=== PATIENT | male | born 1975 | race Caucasian/White ===

== ENCOUNTER 2025-05-16 18:14 | Inpatient (IN) | payer OTHER ==
[2025-05-16] MEDS ORDERED: LORazepam 1 MG/0.5 ML VIAL IV PRN ×3 (18:36)
[2025-05-16] MEDS ORDERED: LORazepam 0.5 MG TAB PO PRN (18:36)
[2025-05-16] MEDS ORDERED: LORazepam 1 MG TAB PO PRN ×2 (18:36)
--- NOTE | 2025-05-16 18:39 | ED ---
Seizure HPI - General Chief Complaint: Seizure Stated Complaint: ETOH Time Seen by Provider: 05/16/25 18:16 Source: patient, EMS, RN notes reviewed, old records reviewed Mode of arrival: EMS Limitations: no limitations - History of Present Illness Initial Comments: This is a 49-year-old male to ER from [place], patient is there on day 3 of alcohol abuse. Patient had a seizure today no prior history of alcohol withdrawal related seizures no prior history of seizures General MD Complaint: seizure -: minutes(s) Description of Episode: loss of consciousness, tonic-clonic movement Witnessed: yes - by bystander Trauma: Yes Seizure History: history of withdrawal seizures Possible Precipitating Event: alcohol withdrawal Associated Symptoms: denies other symptoms - Related Data Home Medications Medication Instructions Recorded Confirmed Acetaminophen Tab [Tylenol] 650 mg PO Q4H PRN 05/16/25 05/16/25 Calcium Phos/D3/Magnesium/Zinc 1 tab PO TID PRN 05/16/25 05/16/25 [Ebsmpeq-Uks-Zpvk-Vitamin D3] Chlorpheniramine Maleate 4 mg PO Q4H PRN 05/16/25 05/16/25 [Chlor-Trimeton] Ibuprofen [Motrin Ib] 600 mg PO Q6H PRN 05/16/25 05/16/25 Loperamide HCl [Imodium A-D] 2 mg PO QID PRN 05/16/25 05/16/25 Multivitamins, Thera [Multivitamin 1 tab PO DAILY 05/16/25 05/16/25 (formulary)] Thiamine [Vitamin B-1] 100 mg PO DAILY 05/16/25 05/16/25 ondansetron HCL [Zofran] 8 mg PO Q6H PRN 05/16/25 05/16/25 Previous Rx's Medication Instructions Recorded Folic Acid 1 mg PO DAILY 90 Days #90 tab 05/19/25 Multivitamins, Thera [Multivitamin 1 each PO DAILY 90 Days #90 tab 05/19/25 (formulary)] Nicotine 21Mg/24Hr Patch [Habitrol] 1 patch TRANSDERM DAILY 30 Days 05/19/25 #30 patch Allergies Allergy/AdvReac Type Severity Reaction Status Date / Time No Known Allergies Allergy Verified 05/16/25 19:18 Review of Systems ROS Statement: Those systems with pertinent positive or pertinent negative responses have been documented in the HPI. ROS Other: All systems not noted in ROS Statement are negative. Past Medical History Past Medical History: No Reported History History of Any Multi-Drug Resistant Organisms: None Reported Past Surgical History: No Surgical Hx Reported Past Psychological History: Anxiety Smoking Status: Current every day smoker Past Alcohol Use History: Heavy Past Drug Use History: Marijuana General Exam Limitations: no limitations General appearance: alert, in no apparent distress Head exam: Present: atraumatic, normocephalic, normal inspection Eye exam: Present: normal appearance, PERRL, EOMI. Absent: scleral icterus, conjunctival injection, periorbital swelling ENT exam: Present: normal exam, mucous membranes moist Neck exam: Present: normal inspection. Absent: tenderness, meningismus, lymphadenopathy Respiratory exam: Present: normal lung sounds bilaterally. Absent: respiratory distress, wheezes, rales, rhonchi, stridor Cardiovascular Exam: Present: regular rate, normal rhythm, normal heart sounds. Absent: systolic murmur, diastolic murmur, rubs, gallop, clicks GI/Abdominal exam: Present: soft, normal bowel sounds. Absent: distended, tenderness, guarding, rebound, rigid Extremities exam: Present: normal inspection, full ROM, normal capillary refill. Absent: tenderness, pedal edema, joint swelling, calf tenderness Back exam: Present: normal inspection Neurological exam: Present: alert, oriented X3, CN II-XII intact Psychiatric exam: Present: normal affect, normal mood Skin exam: Present: warm, dry, intact, normal color. Absent: rash Course Vital Signs 05/16/25 05/16/25 05/16/25 18:16 18:50 20:18 Temperature 98.2 F Pulse Rate 69 74 86 Respiratory 18 18 16 Rate Blood Pressure 102/73 110/72 111/74 O2 Sat by Pulse 97 98 98 Oximetry 05/16/25 21:54 Temperature 98.1 F Pulse Rate 85 Respiratory 16 Rate Blood Pressure 119/79 O2 Sat by Pulse 100 Oximetry - Reevaluation(s) Reevaluation #1: 05/16/25 18:57 Medical records reviewed Reevaluation #2: 05/16/25 18:57 Patient's symptoms are mildly improving Reevaluation #3: 05/16/25 19:47 No recurrent seizure here in the ER Reevaluation #4: Was pt. sent in by a medical professional or institution (BERTHA Bowers, FLIGHT READINESS TECHNICIAN, urgent care, hospital, or fpc...) When possible be specific @ -no Did you speak to anyone other than the patient for history (EMS, parent, family, police, friend...)? What history was obtained from this source @ -no Did you review nursing and triage notes (agree or disagree)? Why? @ -agree Are old charts reviewed (outside hosp., previous admission, EMS record, old EKG, old radiological studies, urgent care reports/EKG's, fpc records)? Report findings @ -yes Differential Diagnosis (chest pain, altered mental status, abdominal pain women, abdominal pain men, vaginal bleeding, weakness, fever, dyspnea, syncope, headache, dizziness, GI bleed, back pain, seizure, CVA, palpatations, mental health, musculoskeletal)? @ -prior EKG interpreted by me (3pts min.). @ -no X-rays interpreted by me (1pt min.). @ -no CT interpreted by me (1pt min.). @ -no U/S interpreted by me (1pt. min.). @ -no What testing was considered but not performed or refused? (CT, X-rays, U/S, labs)? Why? @ -none What meds were considered but not given or refused? Why? @ -none Did you discuss the management of the patient with other professionals (professionals i.e. BERTHA Bowers, FLIGHT READINESS TECHNICIAN, lab, RT, psych nurse, web content & social media manager, ethics instructor, teacher, humane officer, lead case manager)? Give summary @ -no Was smoking cessation discussed for >3mins.? @ -no Was critical care preformed (if so, how long)? @ -no Were there social determinants of health that impacted care today? How? (Homelessness, low income, unemployed, alcoholism, drug addiction, transportation, low edu. Level, literacy, decrease access to med. care, usp, rehab)? @ -none Was there de-escalation of care discussed even if they declined (Discuss DNR or withdrawal of care, Hospice)? DNR status @ -no What co-morbidities impacted this encounter? (DM, HTN, Smoking, COPD, CAD, Cancer, CVA, ARF, Chemo, Hep., AIDS, mental health diagnosis, sleep apnea, morbid obesity)? @ -none Was patient admitted / discharged? Hospital course, mention meds given and route, prescriptions, significant lab abnormalities, going to OR and other pertinent info. @ - 49 male will be admitted for alcohol withdrawal seizures no recurrent seizure here in the ER Discharge Undiagnosed new problem with uncertain prognosis? @ -no Drug Therapy requiring intensive monitoring for toxicity (Heparin, Nitro, Insulin, Cardizem)? @ -no Were any procedures done? @ -no Diagnosis/symptom? @ -Alcohol withdrawal seizure Acute, or Chronic, or Acute on Chronic? @ -Acute Uncomplicated (without systemic symptoms) or Complicated (systemic symptoms)? @ -Complicated Side effects of treatment? @ -no Exacerbation, Progression, or Severe Exacerbation? @ -exacerbation Poses a threat to life or bodily function? How? (Chest pain, USA, PA, pneumonia, PE, COPD, DKA, ARF, appy, cholecystitis, CVA, Diverticulitis, Homicidal, Suicidal, threat to staff... and all critical care pts) @ -yes significant withdrawal Reevaluation #5: Differential Seizure: Recurrent seizure disorder, febrile seizure, alcohol withdrawal, stimulants, meningitis, encephalitis, intercranial hemorrhage, intracranial tumor, stroke, eclampsia, thyrotoxicosis, hypocalcemia, hyponatremia, hypernatremia, hypomagnesemia, psychogenic, this is not meant to be an all-inclusive list. - Consultations Consultation #1: Spoke with Dr. Lao who will admit this patient Medical Decision Making - Medical Decision Making 49 male will be admitted for alcohol withdrawal seizures no recurrent seizure here in the ER - Lab Data Result diagrams: 05/18/25 02:54 05/18/25 02:54 Disposition Clinical Impression: New onset seizure, Alcohol withdrawal seizure, Alcohol withdrawal Disposition: ADMITTED IP TO THIS HOSP Condition: Serious Is patient prescribed a controlled substance at d/c from ED?: No Time of Disposition: 19:00
[2025-05-16] MEDS: SODIUM CHLORIDE 0.9% 1,000 ML IV STA (18:55)
[2025-05-16 19:07] LABS: Basophils # (A) 0.03 10*3/uL (0.00-0.10); Basophils % (A) 0.6 %; Eosinophils # (A) 0.07 10*3/uL (0.04-0.35); Eosinophils % (A) 1.3 %; HCT 41.9 % (39.6-50.0); HGB 14.7 g/dL (13.0-17.0); Immature Platelet Fraction 5.3 % (1.1-6.1); Lymphocytes # (A) 1.07 10*3/uL (0.90-5.00); Lymphocytes % (A) 20.3 %; MCH 32.2 pg (27.0-32.0); MCHC 35.1 g/dL (32.0-37.0); MCV 91.9 fL (80.0-97.0); Monocytes # (A) 0.36 10*3/uL (0.20-1.00); Monocytes % (A) 6.8 %; Neutrophils # (A) 3.74 10*3/uL (1.80-7.70); Neutrophils % (A) 70.8 %; Platelet Count 117 10*3/uL (140-440); RBC 4.56 10*6/uL (4.40-5.60); RDW 13.4 % (11.5-14.5); WBC 5.28 10*3/uL (4.50-10.00)
[2025-05-16 19:19] LABS: ALT 87 U/L (4-49); AST 105 U/L (17-59); African American GFR (CKD) >90 (>60 ml/min/1.73 sqM); Albumin 4.0 g/dL (3.5-5.0); Alkaline Phosphatase 100 U/L (38-126); Anion Gap 7 mmol/L; Blood Urea Nitrogen 6 mg/dL (9-20); Calcium 9.7 mg/dL (8.4-10.2); Carbon Dioxide 33 mmol/L (22-30); Chloride 95 mmol/L (98-107); Glucose 130 mg/dL (74-99); Lipase 169 U/L (23-300); Magnesium 2.3 mg/dL (1.6-2.3); Non-African American GFR(CKD) >90 (>60 ml/min/1.73 sqM); Potassium 3.8 mmol/L (3.5-5.1); Sodium 135 mmol/L (137-145); Total Protein 7.1 g/dL (6.3-8.2)
[2025-05-16] MEDS ORDERED: NALOXONE 0.4 MG/ML 1 ML VIAL IV PRN (19:51)
[2025-05-16] MEDS ORDERED: ONDANSETRON 4 MG/2 ML VIAL IVP PRN (19:51)
[2025-05-16] MEDS: DEXTROSE 5%-0.45% NACL 1,000 ML IV SCH (20:19)
[2025-05-16] MEDS: LORazepam 1 MG/0.5 ML VIAL IV STA (20:21)
[2025-05-16 20:57] LABS: Bilirubin,Urine Negative (Negative); Blood,Urine Negative (Negative); Color,Urine Colorless; Glucose,Urine (UA) Negative (Negative); Ketones,Urine Negative (Negative); Leukocyte Esterase,Urine Negative (Negative); Nitrite,Urine Negative (Negative); PH, Urine 7.0 (5.0-8.0); Protein,Urine Negative (Negative); Specific Gravity,Urine 1.003 (1.001-1.035); Urobilinogen,Urine <2.0 mg/dL (<2.0)
[2025-05-16] MEDS: PANTOPRAZOLE 40 MG/10 ML VIAL IV SCH (21:16)
[2025-05-16 21:47] LABS: Barbiturate Screen,Urine Not Detected (NotDetected); Benzodiazepines Screen,Urine Not Detected (NotDetected); Opiate Screen,Urine Not Detected (NotDetected); Oxycodone Screen, Urine Not Detected (NotDetected); Phencyclidine Screen,Urine Not Detected (NotDetected); Tricyclic Antidepressant,Urine Not Detected (NotDetected); Urn Cannabinoid Scrn Detected (NotDetected)
[2025-05-16] MEDS: NICOTINE 21MG/24HR PATCH TRANSDERM SCH (23:08)
[2025-05-17] MEDS: MULTIVITAMINS, THERA 1 EACH TAB PO SCH (08:44)
[2025-05-17] MEDS: THIAMINE 100 MG TAB PO SCH (08:44)
[2025-05-17] MEDS: FOLIC ACID 1 MG TAB PO SCH (08:45)
[2025-05-17] MEDS: LORazepam 1 MG TAB PO PRN (08:54)
[2025-05-17 09:06] LABS: ALT 85 U/L (10-49); AST 93 U/L (14-35); Albumin 3.8 g/dL (3.8-4.9); Albumin/Globulin Ratio 1.52 Ratio (1.60-3.17); Alkaline Phosphatase 93 U/L (41-126); Anion Gap 9.20 mmol/L (4.00-12.00); BUN/Creat Ratio 6.38 Ratio (12.00-20.00); Blood Urea Nitrogen 5.1 mg/dL (9.0-27.0); Calcium 8.7 mg/dL (8.7-10.3); Carbon Dioxide 27.8 mmol/L (21.6-31.8); Chloride 105 mmol/L (96-109); Globulin 2.5 g/dL (1.6-3.3); Glucose 89 mg/dL (70-110); Magnesium 2.1 mg/dL (1.5-2.4); Potassium 4.3 mmol/L (3.5-5.5); Sodium 142 mmol/L (135-145); Total Protein 6.3 g/dL (6.2-8.2)
[2025-05-17 09:15] LABS: Basophils # (A) 0.05 X 10*3/uL (0.00-0.10); Basophils % (A) 0.9 %; Eosinophils # (A) 0.10 X 10*3/uL (0.04-0.35); Eosinophils % (A) 1.9 %; HCT 43.5 % (39.6-50.0); HGB 14.4 g/dL (13.0-17.0); Immature Grans, Automated 0.20 %; Lymphocytes # (A) 2.01 X 10*3/uL (0.90-5.00); Lymphocytes % (A) 37.2 %; MCH 31.4 pg (27.0-32.0); MCHC 33.1 g/dL (32.0-37.0); MCV 94.8 FL (80.0-97.0); Monocytes # (A) 0.60 X 10*3/uL (0.20-1.00); Monocytes % (A) 11.1 %; NRBC Per 100 WBC 0 X 10*3/uL (0.00-0.01); Neutrophils # (A) 2.63 X 10*3/uL (1.80-7.70); Neutrophils % (A) 48.7 %; Platelet Count 121 X 10*3/uL (140-440); RBC 4.59 X 10*6/uL (4.40-5.60); RDW 13.9 % (11.5-14.5); WBC 5.40 X 10*3/uL (4.50-10.00)
[2025-05-18 07:47] LABS: Basophils # (A) 0.04 X 10*3/uL (0.00-0.10); Basophils % (A) 0.7 %; Eosinophils # (A) 0.17 X 10*3/uL (0.04-0.35); Eosinophils % (A) 2.8 %; HCT 43.7 % (39.6-50.0); HGB 14.0 g/dL (13.0-17.0); Immature Grans, Automated 0.20 %; Lymphocytes # (A) 2.27 X 10*3/uL (0.90-5.00); Lymphocytes % (A) 37.5 %; MCH 31.0 pg (27.0-32.0); MCHC 32.0 g/dL (32.0-37.0); MCV 96.7 FL (80.0-97.0); Monocytes # (A) 0.65 X 10*3/uL (0.20-1.00); Monocytes % (A) 10.7 %; NRBC Per 100 WBC 0 X 10*3/uL (0.00-0.01); Neutrophils # (A) 2.91 X 10*3/uL (1.80-7.70); Neutrophils % (A) 48.1 %; Platelet Count 111 X 10*3/uL (140-440); RBC 4.52 X 10*6/uL (4.40-5.60); RDW 13.7 % (11.5-14.5); WBC 6.05 X 10*3/uL (4.50-10.00)
[2025-05-18 08:03] LABS: Anion Gap 10.10 mmol/L (4.00-12.00); BUN/Creat Ratio 9.57 Ratio (12.00-20.00); Blood Urea Nitrogen 6.7 mg/dL (9.0-27.0); Carbon Dioxide 28.9 mmol/L (21.6-31.8); Chloride 104 mmol/L (96-109); Glucose 84 mg/dL (70-110); Potassium 4.1 mmol/L (3.5-5.5); Sodium 143 mmol/L (135-145)
[2025-05-18 08:04] LABS: ALT 85 U/L (10-49); AST 88 U/L (14-35); Albumin 3.8 g/dL (3.8-4.9); Albumin/Globulin Ratio 1.52 Ratio (1.60-3.17); Alkaline Phosphatase 89 U/L (41-126); Calcium 8.8 mg/dL (8.7-10.3); Globulin 2.5 g/dL (1.6-3.3); Total Protein 6.3 g/dL (6.2-8.2)
[2025-05-18 17:52] VITALS: BMI 16.7
--- NOTE | 2025-05-19 00:39 | HP ---
HISTORY AND PHYSICAL HISTORY OF PRESENT ILLNESS: A white male came in for alcohol abuse from [facility] no prior history of withdrawal seizures. No history of seizure history. First time seizure. No alcohol withdrawal or withdrawal seizures. HOME MEDICATIONS: 1. Tylenol. 2. Magnesium. 3. Triamterene. 4. Motrin 600 q.8 p.r.n. 5. Vitamin B1 100 mg daily. 6. Zofran 8 mg q.6 p.r.n. 7. Loperamide 2 tabs q.i.d.. REVIEW OF SYSTEMS: A 14-point review of systems otherwise is negative. PAST MEDICAL HISTORY: Anxiety, everyday smoker, COPD, pulmonary hypertension, nocturnal hypoxemia. PHYSICAL EXAMINATION: VITAL SIGNS: Stable, afebrile. CARDIOVASCULAR: S1, S2. LUNGS: Scattered wheeze and rhonchi. GI: Soft, minimal tenderness to palpation, diffuse. NEUROLOGIC: Cranial nerves intact. PSYCH: Fair mood and affect. PLAN: Continue current treatment. To rehydrate as patient appears to be dehydrated. Blood pressure is 102-110/70s, O2 97% to 88% on room air, temperature 98.2, respiratory rate 16-18. Alcohol withdrawal, alcohol sedation, differential seizure secondary to . Prognosis is guarded. Ambulate as tolerated. New onset seizure. We will have to see if it is related to alcohol. EEG pending. MMODL / IJN: [id number] /
--- NOTE | 2025-05-19 01:00 | PN ---
PROGRESS NOTE SUBJECTIVE: Alcohol withdrawal, seizures, COPD, breathing, smoked for many years. He is on nicotine patch, Zofran and Protonix for GERD, Ativan or alcohol withdrawal. Prognosis guarded. OBJECTIVE: CARDIOVASCULAR: S1, S2. LUNGS: Transmitted upper airway sounds. GI: Soft, nontender. HEMATOLOGY: Negative Homans. PSYCH: Fair mood and affect. PLAN: Continue current treatments. Start albuterol inhaler, to go home on Symbicort. Continue home medications. Prognosis is guarded. Ambulate as tolerated. Nicotine cessation. MMODL / IJN: [id number] /
--- NOTE | 2025-05-19 14:28 | CT ---
EXAMINATION TYPE: CT brain wo con CT DLP: 1141.1 mGycm, Automated exposure control for dose reduction was used. DATE OF EXAM: 05/19/2025 2:20 PM COMPARISON: None. CLINICAL INDICATION:Male, 49 years old with history of seizure, seizure TECHNIQUE: Brain: Multiple axial CT images of the brain were obtained without IV contrast. . Coronal and sagitta l reformats reviewed. FINDINGS: Brain: Extra-axial spaces: No abnormal extra-axial fluid collections. Ventricular system: Within normal limits Cerebral parenchyma: No acute intraparenchymal hemorrhage or mass effect. The downing-white junction is well differentiated. Cerebellum: Unremarkable. Mass effect: No evidence of midline shift. Intracranial vasculature: unremarkable Soft tissues: Normal. Calvarium/osseous structures: No depressed skull fracture. Paranasal sinuses and mastoid air cells: The mastoid air cells are clear. Minimal mucosal thickening in the inferior right maxillary sinus. The remaining paranasal sinuses are clear. Visualized orbits: Orbital contents are intact. IMPRESSION: No acute intracranial process. [facility], , 05/19/2025 2:26 PM
--- NOTE | 2025-05-19 15:34 | P.CNNES ---
History of Present Illness Consult date: 05/19/25 Requesting physician: Anibal Lao Reason for Consult: seizure, family request History of Present Illness: Patient is a 49-year-old right-handed male, with history of alcoholism, came to the hospital as a transfer from [facility], by ambulance on 05/16/2025 at 6:14 PM for possible seizure-like activity. Patient states that he was at [facility] for only 2 days before he had a seizure. Patient states on day 1, he was feeling sick, throwing up, shaking, could not eat. On the second day he was feeling better, was able to eat was sitting having dinner at the kitchen when all of a sudden he felt lightheaded and lightheadedness on his feet. He walked outside to get fresh air but then he collapsed and had a seizure. He then remembers the nurses calling him and he was staring in space. He did not bite his tongue. He was brought to the hospital. He states that he did not hit his head. As per EMS flowsheet it was reported patient was brought from [facility] for a possible seizure. When they arrived on the scene, patient was alert and ambulatory. Patient complaining of tremors. Patient feels like he might seize. Patient mentioned that he was feeling this way since in the morning. Patient has history of alcohol abuse his last drink was 3 days prior. On examination patient was alert and oriented x 4 with GCS of 15. Patient was feeling tremors. Patient's vitals at the scene was blood pressure 120/78, pulse rate 102, respirations 16 saturation 99%, blood glucose 122. CBC is normal. Sodium was 135, but now is normal. AST 105, ALT 87. They have also improved. Lipase normal UA negative. Urine drug screen positive for marijuana. Blood alcohol level less than 10. Patient states he had history of a seizure at age 16 while he was playing video game. He had a drinking lites in the video game and he ended up with a seizure and woke up in the hospital. Patient states that he took Tegretol for about 1 to 2 years then stopped taking it as he felt that he outgrew it. He had another seizure several years ago, but was also related to alcohol withdrawal when he was coming off drinking alcohol. That seizure happened at work. Patient states he has history of alcoholism since he was age 20. He used to drink occasionally, but in the past several years he has been drinking alcohol every day. He drinks 5 to 6 cans of 25 ounce 8% beer. He drinks it almost every day. He also has history of smoking 1 pack/day since age 20. He smokes marijuana. He has tried some other drugs, but not habitual and not recently. Review of Systems All pertinent positive and negative review of systems mentioned in the HPI, otherwise unremarkable. Past Medical History Past Medical History: No Reported History History of Any Multi-Drug Resistant Organisms: None Reported Past Surgical History: No Surgical Hx Reported Additional Past Anesthesia/Blood Transfusion Reaction / Comment(s): no hx of blood tansfusion Past Psychological History: Anxiety Smoking Status: Current every day smoker Past Alcohol Use History: Abuse, Daily, Heavy Past Drug Use History: Marijuana Medications and Allergies Home Medications Medication Instructions Recorded Confirmed Type Acetaminophen Tab [Tylenol] 650 mg PO Q4H PRN 05/16/25 05/16/25 History Calcium Phos/D3/Magnesium/Zinc 1 tab PO TID PRN 05/16/25 05/16/25 History [Lqzmtka-Fpo-Nsgo-Vitamin D3] Chlorpheniramine Maleate 4 mg PO Q4H PRN 05/16/25 05/16/25 History [Chlor-Trimeton] Ibuprofen [Motrin Ib] 600 mg PO Q6H PRN 05/16/25 05/16/25 History Loperamide HCl [Imodium A-D] 2 mg PO QID PRN 05/16/25 05/16/25 History Multivitamins, Thera [Multivitamin 1 tab PO DAILY 05/16/25 05/16/25 History (formulary)] Thiamine [Vitamin B-1] 100 mg PO DAILY 05/16/25 05/16/25 History ondansetron HCL [Zofran] 8 mg PO Q6H PRN 05/16/25 05/16/25 History Folic Acid 1 mg PO DAILY 90 Days #90 tab 05/19/25 Rx Multivitamins, Thera [Multivitamin 1 each PO DAILY 90 Days #90 tab 05/19/25 Rx (formulary)] Nicotine 21Mg/24Hr Patch [Habitrol] 1 patch TRANSDERM DAILY 30 Days 05/19/25 Rx #30 patch Allergies Allergy/AdvReac Type Severity Reaction Status Date / Time No Known Allergies Allergy Verified 05/16/25 19:18 Physical Examination - Vital Signs Vital Signs: Vital Signs Temp Pulse Resp BP BP Pulse Ox 05/19/25 07:16 98.3 F 64 16 111/70 99 05/19/25 01:18 98.2 F 62 17 113/68 99 05/18/25 21:00 67 17 05/18/25 19:26 98.1 F 67 17 117/66 100 05/18/25 14:00 98.7 F 64 16 103/65 100 Intake and Output 05/18/25 05/19/25 05/19/25 22:59 06:59 14:59 Intake Total 250 Output Total 500 Balance 250 -500 Intake: Oral 250 Output: Urine 500 Other: Voiding Method Urinal # Voids 3 3 # Bowel Movements 2 1 Weight 58.967 kg Patient is a middle aged male, in no acute distress. Patient is alert awake oriented to time place and person. Speech and language functions are normal. Patient can name and repeat very well. No aphasia or dysarthria. Attention, concentration and fund of knowledge is adequate. On cranial nerve examination, pupils are equal, round and reacting to light, visual godinez are full on confrontation, with no neglect on double simultaneous stimulation. Extraocular muscles are intact with no nystagmus. Face is sy mmetric, tongue protrudes to the midline. Palatal elevation and sensation normal, hearing and shoulder shrug normal, facial sensation normal. On muscle strength testing, there is no pronator drift and the strength is normal in arms and legs distally and proximally. Deep tendon reflexes are symmetric but diminished and plantars down going. Sensory to touch is equal with no neglect on double simultaneous stimulation. Cerebellar function showed no ataxia for [id number] testing. No dysdi adochokinesia. No ataxia for [id number] testing on either side. Tone and bulk of muscles normal. Gait appeared normal On general examination, there is no carotid bruit or murmur, S1-S2 audible. Chest is clear on consultation. Abdomen is soft nontender. No organomegaly, bowel sounds present. Peripheral pulses are present. No peripheral edema. Results - Laboratory Findings CBC and BMP: 05/18/25 02:54 05/18/25 02:54 Abnormal Lab Findings: Abnormal Labs 05/16/25 05/16/25 05/16/25 18:52 18:52 20:37 MCH 32.2 H Plt Count 117 L Sodium 135 L Chloride 95 L Carbon Dioxide 33 H BUN 6 L BUN/Creatinine Ratio Glucose 130 H Phosphorus 2.1 L AST 105 H ALT 87 H Albumin/Globulin Ratio U Marijuana (THC) Screen Detected H 05/17/25 05/17/25 05/18/25 05:24 05:24 02:54 MCH Plt Count 121 L 111 L Sodium Chloride Carbon Dioxide BUN 5.1 L BUN/Creatinine Ratio 6.38 L Glucose Phosphorus AST 93 H ALT 85 H Albumin/Globulin Ratio 1.52 L U Marijuana (THC) Screen 05/18/25 02:54 MCH Plt Count Sodium Chloride Carbon Dioxide BUN 6.7 L BUN/Creatinine Ratio 9.57 L Glucose Phosphorus AST 88 H ALT 85 H Albumin/Globulin Ratio 1.52 L U Marijuana (THC) Screen Assessment and Plan Assessment: * Seizure, likely due to alcohol withdrawal. Patient does have longstanding history of alcoholism. Patient was undergoing alcohol detox when he had a seizure. He had history of alcohol-related seizure once, a few years ago as well. * History of photic induced seizure while playing video game at age 16, which was not related to alcoholism. * Chronic alcoholism * Elevated liver enzymes due to above * Tobacco use * Marijuana use Plan: * Patient's seizure is most likely related to alcohol withdrawal. However he has history of photic induced seizure at 16 years of age. Need to rule out seizure tendency. * We will check EEG evaluate for epileptiform activity. * CT head, rule out subdural hematoma * No indication for antiepileptic medication, unless EEG shows clear epileptiform activity. * Patient informed of [place] state law of no driving unless seizure-free for 6 months, climbing ladders, operating dangerous machineries or unsupervised swimming. * Recommend abstinence from alcoholism, tobacco use and marijuana use. * Thiamine, folate, multivitamins. * Further management based upon above test results. * Thank you for the consult. Addendum: EEG was performed, which is normal awake and drowsy. No focal, lateralized or epileptiform activity was seen. CT head revealed no acute intracranial process. I personally reviewed CT head, agree with the findings. No indication for antiepileptic medication. Neurologically clear for discharge to [facility] with above recommendations.
[2025-05-19 15:58] VITALS: BP 107/72; PULSE 63; RESP 16; TEMP 98.3
--- NOTE | 2025-05-20 16:52 | EEG ---
ELECTROENCEPHALOGRAM REPORT PREAMBLE: This is a 49-year-old male with alcohol withdrawal seizure. The patient does have history of a photic seizure at age 16 while playing video game. EEG FINDINGS: This is a 21-channel digital EEG recorded with video component, utilizing 10/20 international system with referential and bipolar montages. Background consists of somewhat suppressed background activity, but later did have appearance of 9 to 10 hertz ray-nt-ofiwsild amplitude alpha activity seen best in posterior head region. Background is posterior dominant and is reactive to eye opening and closing. Photic driving response was seen with some flash frequencies. Different stages of sleep were not seen. No focal or generalized epileptiform activity was seen. IMPRESSION: This is a normal awake and drowsy EEG. No focal, lateralized or epileptiform activity was seen. MMODL / IJN: [id number] /
== END 2025-05-19 17:50 | disposition other institution (70) | DRG 897 ==
LOC: EC 18:14 → 4SSUR 18:52
PROVIDERS: ADMIT Family Medicine; ATTEND Family Medicine
DX: F10.239 Alcohol dependence with withdrawal, unspecified (principal); E86.0 Dehydration; G40.89 Other seizures; J44.9 Chronic obstructive pulmonary disease, unspecified; F17.210 Nicotine dependence, cigarettes, uncomplicated; K21.9 Gastro-esophageal reflux disease without esophagitis; R74.8 Abnormal levels of other serum enzymes; Y90.0 Blood alcohol level of less than 20 mg/100 ml
CPT/HCPCS: 36415; 70450; 80053; 80306; 80320; 81003; 83690; 83735; 84100; 85025; 95816; 96361; 96374; 99285